=== PATIENT | female | born 1955 | race Caucasian/White ===

== ENCOUNTER 2022-01-03 06:29 | Day surgery (SDC) | payer OTHER ==
[2021-12-31 16:38] VITALS: BMI 31.1
[2022-01-03 06:54] VITALS: RESP 16
[2022-01-03] MEDS ORDERED: LIDOCAINE HCL 2% (20ML MULTI-DOSE VIAL) ONE (07:35)
[2022-01-03] MEDS ORDERED: BUPIVACAINE HCL 150 ML ONE ×2 (07:35→08:28)
[2022-01-03] MEDS ORDERED: LIDOCAINE HCL/PF 2% SDV 5ML VIAL ONE (07:39)
[2022-01-03] MEDS ORDERED: PROPOFOL 20 ML ONE ×2 (07:39→09:14)
[2022-01-03] MEDS ORDERED: MIDAZOLAM HCL 2 MG/2 ML SINGLE DOSE VIAL ONE (07:39)
[2022-01-03] MEDS ORDERED: ONDANSETRON 4 MG/2 ML VIAL ONE (07:40)
[2022-01-03] MEDS ORDERED: ceFAZolin SODIUM 1 GM VIAL ONE (08:05)
[2022-01-03] MEDS ORDERED: PROMETHAZINE HCL 25 MG/1 ML VIAL IVPUSH PRN (10:54)
[2022-01-03] MEDS ORDERED: ONDANSETRON 4 MG/2 ML VIAL IVPUSH PRN (10:54)
[2022-01-03] MEDS ORDERED: oxyCODONE HCL 5 MG TABLET PO PRN ×2 (10:54)
[2022-01-03] MEDS ORDERED: ACETAMINOPHEN 1000 MG/100 ML BAG IVPB ONE (10:55)
[2022-01-03] MEDS ORDERED: ACETAMINOPHEN INJECTION 100 ML IVPB ONE (10:59)
[2022-01-03] MEDS ORDERED: LACTATED RINGERS SOLUTION 1,000 ML IV SCH (11:00)
[2022-01-03 11:41] VITALS: PULSE 52; TEMP 97.5
[2022-01-03 12:34] VITALS: BP 160/92
== END 2022-01-03 12:20 | disposition home or self-care (01) ==
LOC: FASU 06:29
PROVIDERS: ATTEND Podiatrist Foot Surgery
PROC: 0JBR0ZX Excision of Left Foot Subcutaneous Tissue and Fascia, Open Approach, Diagnostic (ICD-10-PCS; 2022-01-03)
PROC: 0JBQ0ZX Excision of Right Foot Subcutaneous Tissue and Fascia, Open Approach, Diagnostic (ICD-10-PCS; 2022-01-03)
PROC: 0QSN04Z Reposition Right Metatarsal with Internal Fixation Device, Open Approach (ICD-10-PCS; principal; 2022-01-03 08:25)
PROC: 0LQV0ZZ Repair Right Foot Tendon, Open Approach (ICD-10-PCS; 2022-01-03 08:25)
DX: M21.611 Bunion of right foot (principal); M76.821 Posterior tibial tendinitis, right leg; D21.21 Benign neoplasm of connective and other soft tissue of right lower limb, including hip; D21.22 Benign neoplasm of connective and other soft tissue of left lower limb, including hip
CPT/HCPCS: 73630-TC-RT-FY; 88305-TC; 88311-TC; 94760; C1713